=== PATIENT | male | born 1950 | race Caucasian/White ===

== ENCOUNTER 2016-06-20 11:05 | Inpatient (IN) | payer MEDICARE ==
[~2016-06-20] VITALS: Ht 172.7 cm; Wt 66.9 kg
[~2016-06-20 11:05] MED LIST: DOXY100C2 PO; HYDR-3241 PO; LISI-167 PO; TAMS0.4C2 PO
[2016-06-20] MEDS ORDERED: SODIUM CHLORIDE FLUSH 10ML SYR IVF ONE (14:00)
[2016-06-20 14:35] LABS: HEMOGLOBIN 12.3 g/dL (13.7-18.0)
[2016-06-20 14:46] LABS: ASPARTATE AMINO TRANSFERASE 11 U/L (15-37); BLOOD UREA NITROGEN 89 mg/dL (7-18)
[2016-06-20] MEDS ORDERED: MORPHINE SULFATE 4 MG/ML, 1ML ONE ×3 (14:54→20:44)
[2016-06-20] MEDS ORDERED: ONDANSETRON 2MG/ML, 2ML ONE (14:55)
[2016-06-20 14:56] LABS: IS PT STATUS REG ER OR PRE ER? YES
[2016-06-20] MEDS ORDERED: ONDANSETRON 2MG/ML, 2ML IVPush ONE (15:00)
[2016-06-20] MEDS: MORPHINE SULFATE 4 MG/ML, 1ML IVPush PRN ×4 (15:02→23:36)
[2016-06-20] MEDS ORDERED: SODIUM BICARBONATE 1 MEQ/ML, 50ML VIAL ONE (15:22)
[2016-06-20] MEDS ORDERED: DEXTROSE 50%, 50ML SYRINGE ONE ×2 (15:22→17:08)
[2016-06-20] MEDS ORDERED: INSULIN SINGLE DOSE, ER SQ-INSULIN ONE (15:23)
[2016-06-20] MEDS ORDERED: INSULIN REGULAR 100 UNITS/ML, 3ML VIAL IVPush ONE (15:30)
[2016-06-20] MEDS ORDERED: SODIUM BICARB 8.4%, 50ML SYRINGE IVPush ONE (15:30)
[2016-06-20] MEDS ORDERED: FUROSEMIDE 40 MG/4 ML IVPush ONE (15:30)
[2016-06-20] MEDS ORDERED: DEXTROSE 50%, 50ML SYRINGE IVPush ONE ×3 (15:30→18:30)
[2016-06-20] MEDS ORDERED: LIDOCAINE GEL 2%, 5ML ONE (15:55)
[2016-06-20] MEDS ORDERED: SODIUM CHLORIDE 0.9% 1,000 ML IV SCH (16:10)
[2016-06-20] MEDS ORDERED: ACETAMINOPHEN 325 MG TABLET PO PRN (16:30)
[2016-06-20] MEDS ORDERED: LORazepam 1MG TABLET PO PRN (16:30)
[2016-06-20] MEDS ORDERED: ONDANSETRON 2MG/ML, 2ML IVP PRN (16:30)
[2016-06-20] MEDS ORDERED: SODIUM POLYSTYRENE SULFONATE ORAL SUSP PO ONE (16:30)
[2016-06-20] MEDS ORDERED: ONDANSETRON ODT 4 MG PO PRN (16:30)
[2016-06-20] MEDS ORDERED: BISACODYL 10 MG SUPP PR PRN (16:30)
[2016-06-20] MEDS ORDERED: LABETALOL 5MG/ML, 20ML IVPush PRN (16:30)
[2016-06-20] MEDS ORDERED: PHARMACY MAY ADJ FOR RENAL FX MC PRN (17:00)
[2016-06-20] MEDS ORDERED: LIDOCAINE 1%, 20ML ONE (17:19)
[2016-06-20] MEDS ORDERED: FENTANYL PF 100 MCG/2ML ONE (17:50)
[2016-06-20] MEDS ORDERED: NICOTINE 14MG/24 HR PATCH.TD24 ONE ×2 (18:17→19:32)
[2016-06-20] MEDS ORDERED: VISIPAQUE 270 MG/ML, 50ML BOTTLE ONE (18:56)
[2016-06-20] MEDS: SODIUM BICARB 8.4%,50ML SYR. 75 MEQ in SODIUM CHLORIDE 0.45% 1,000 ML IV SCH (19:14)
[2016-06-20 19:30] LABS: BLOOD UREA NITROGEN 91 mg/dL (7-18)
[2016-06-20] MEDS ORDERED: HEPARIN 5,000 UNITS/ML, 1ML ONE (19:32)
[2016-06-20] MEDS: NICOTINE 14MG/24 HR PATCH.TD24 TD SCH (19:35)
[2016-06-20] MEDS: HEPARIN 5,000 UNITS/ML, 1ML SQ SCH (19:36)
[2016-06-20 19:56] LABS: DAU SCREEN DISCLAIMER
[2016-06-20 20:15] LABS: POTASSIUM,URINE RANDOM 12 mmol/L
[2016-06-20] MEDS ORDERED: SODIUM POLYSTYRENE SULFONATE ORAL SUSP ONE (20:16)
[2016-06-20 22:53] VITALS: BP 166/67
[2016-06-20 22:57] VITALS: BP 166/67
[2016-06-20] MEDS: HYDROcodone/APAP 10/325 MG TABLET PO PRN (23:37)
[2016-06-21 02:01] VITALS: BP 171/65
[2016-06-21] MEDS: SODIUM BICARB 8.4%,50ML SYR. 75 MEQ in SODIUM CHLORIDE 0.45% 1,000 ML IV SCH ×3 (03:47→20:07)
[2016-06-21] MEDS: HEPARIN 5,000 UNITS/ML, 1ML SQ SCH ×3 (03:49→20:00)
[2016-06-21 05:47] LABS: HEMOGLOBIN 10.7 g/dL (13.7-18.0)
[2016-06-21 05:56] LABS: BLOOD UREA NITROGEN 74 mg/dL (7-18)
[2016-06-21 05:59] LABS: ASPARTATE AMINO TRANSFERASE 9 U/L (15-37)
[2016-06-21] MEDS: THIAMINE 100MG TABLET PO SCH (07:54)
[2016-06-21] MEDS: FOLIC ACID 1 MG TABLET PO SCH (07:54)
[2016-06-21] MEDS: TAMSULOSIN 0.4 MG CAP.ER.24H PO SCH (07:54)
[2016-06-21 08:44] VITALS: BP 178/67
[2016-06-21] MEDS ORDERED: LABETALOL 5MG/ML, 20ML IVPush PRN (09:24)
[2016-06-21] MEDS ORDERED: DEXTROSE 4 GM TAB.CHEW PO PRN (09:30)
[2016-06-21] MEDS ORDERED: GLUCAGON 1 MG IM PRN (09:30)
[2016-06-21] MEDS ORDERED: DEXTROSE 50%, 50ML SYRINGE IVPush PRN (09:30)
[2016-06-21] MEDS: SODIUM CHLORIDE FLUSH 10ML SYR IVF SCH ×2 (10:42→20:12)
[2016-06-21] MEDS: HYDROcodone/APAP 10/325 MG TABLET PO PRN ×4 (11:01→20:08)
[2016-06-21 13:14] VITALS: BP 176/66
[2016-06-21] MEDS: NICOTINE 14MG/24 HR PATCH.TD24 TD SCH (15:54)
[2016-06-21] MEDS: METOPROLOL TARTRATE 25 MG TABLET PO SCH (18:09)
[2016-06-21 18:48] VITALS: BP 175/62
[2016-06-22 00:26] VITALS: BP 182/64
[2016-06-22 01:00] VITALS: BP 172/66
[2016-06-22] MEDS: HYDROcodone/APAP 10/325 MG TABLET PO PRN ×6 (01:11→23:01)
[2016-06-22] MEDS ORDERED: LABETALOL 20 MG/4 ML IVPush PRN (01:30)
[2016-06-22] MEDS: HEPARIN 5,000 UNITS/ML, 1ML SQ SCH ×3 (04:00→20:00)
[2016-06-22] MEDS: SODIUM BICARB 8.4%,50ML SYR. 75 MEQ in SODIUM CHLORIDE 0.45% 1,000 ML IV SCH ×3 (04:42→22:53)
[2016-06-22] MEDS: METOPROLOL TARTRATE 25 MG TABLET PO SCH ×2 (05:43→18:14)
[2016-06-22 05:59] LABS: BLOOD UREA NITROGEN 41 mg/dL (7-18)
[2016-06-22 07:28] VITALS: BP 177/63
[2016-06-22] MEDS: TAMSULOSIN 0.4 MG CAP.ER.24H PO SCH (10:11)
[2016-06-22] MEDS: FOLIC ACID 1 MG TABLET PO SCH (10:11)
[2016-06-22] MEDS: THIAMINE 100MG TABLET PO SCH (10:11)
[2016-06-22] MEDS: SODIUM CHLORIDE FLUSH 10ML SYR IVF SCH ×2 (10:13→20:16)
[2016-06-22 14:20] VITALS: BP 177/71
[2016-06-22] MEDS: NICOTINE 14MG/24 HR PATCH.TD24 TD SCH (18:13)
[2016-06-22 19:48] VITALS: BP 137/61
[2016-06-22 19:50] VITALS: BP 137/61
[2016-06-23 03:11] VITALS: BP 160/80
[2016-06-23] MEDS: HEPARIN 5,000 UNITS/ML, 1ML SQ SCH ×3 (04:00→19:46)
[2016-06-23 06:07] LABS: BLOOD UREA NITROGEN 24 mg/dL (7-18)
[2016-06-23] MEDS: METOPROLOL TARTRATE 25 MG TABLET PO SCH ×2 (06:36→17:24)
[2016-06-23] MEDS: HYDROcodone/APAP 10/325 MG TABLET PO PRN ×5 (06:36→23:56)
[2016-06-23 07:51] VITALS: BP 160/67
[2016-06-23] MEDS: SODIUM CHLORIDE FLUSH 10ML SYR IVF SCH ×2 (09:37→19:46)
[2016-06-23] MEDS: FOLIC ACID 1 MG TABLET PO SCH (09:37)
[2016-06-23] MEDS: SODIUM BICARB 8.4%,50ML SYR. 75 MEQ in SODIUM CHLORIDE 0.45% 1,000 ML IV SCH ×2 (09:37→19:45)
[2016-06-23] MEDS: TAMSULOSIN 0.4 MG CAP.ER.24H PO SCH (09:37)
[2016-06-23] MEDS: THIAMINE 100MG TABLET PO SCH (09:37)
[2016-06-23] MEDS ORDERED: POTASSIUM CHLORIDE 20 MEQ TAB.ER.PRT PO ONE (10:30)
[2016-06-23 13:35] VITALS: BP 175/62
[2016-06-23] MEDS: POLYETHYLENE GLYCOL 17 GM PACKET PO PRN (14:22)
[2016-06-23] MEDS: DOCUSATE 100 MG CAPSULE PO PRN (14:22)
[2016-06-23] MEDS: NICOTINE 14MG/24 HR PATCH.TD24 TD SCH (17:24)
[2016-06-23 19:42] VITALS: BP 170/74
[2016-06-24 01:02] VITALS: BP 170/81
[2016-06-24] MEDS: HEPARIN 5,000 UNITS/ML, 1ML SQ SCH ×3 (04:00→20:00)
[2016-06-24] MEDS: SODIUM BICARB 8.4%,50ML SYR. 75 MEQ in SODIUM CHLORIDE 0.45% 1,000 ML IV SCH (04:44)
[2016-06-24] MEDS: HYDROcodone/APAP 10/325 MG TABLET PO PRN ×4 (04:48→21:12)
[2016-06-24 05:47] LABS: HEMOGLOBIN 11.3 g/dL (13.7-18.0)
[2016-06-24 05:48] LABS: BLOOD UREA NITROGEN 16 mg/dL (7-18); TOTAL IRON BINDING CAPACITY 148 mcg/dL (250-450)
[2016-06-24 07:07] VITALS: BP 171/69
[2016-06-24] MEDS ORDERED: MAGNESIUM SULFATE PMX 2GM/50ML 50 ML IV ONE (08:00)
[2016-06-24] MEDS: POTASSIUM CHLORIDE 20 MEQ TAB.ER.PRT PO SCH (08:11)
[2016-06-24] MEDS: FOLIC ACID 1 MG TABLET PO SCH (08:20)
[2016-06-24] MEDS: METOPROLOL TARTRATE 25 MG TABLET PO SCH ×2 (08:20→17:28)
[2016-06-24] MEDS: THIAMINE 100MG TABLET PO SCH (08:20)
[2016-06-24] MEDS: SODIUM CHLORIDE FLUSH 10ML SYR IVF SCH ×2 (08:21→21:04)
[2016-06-24] MEDS: POLYETHYLENE GLYCOL 17 GM PACKET PO PRN (10:28)
[2016-06-24] MEDS: DOCUSATE 100 MG CAPSULE PO PRN (10:29)
[2016-06-24] MEDS: MAGNESIUM OXIDE 400 MG TABLET PO SCH ×2 (10:29→21:04)
[2016-06-24] MEDS: NEUTRA PHOS K 250 MG TABLET PO SCH ×3 (10:29→21:04)
[2016-06-24 12:34] VITALS: BP 155/65
[2016-06-24] MEDS: NICOTINE 14MG/24 HR PATCH.TD24 TD SCH (17:31)
[2016-06-24 20:45] VITALS: BP 157/60
[2016-06-24] MEDS: TAMSULOSIN 0.4 MG CAP.ER.24H PO SCH (21:04)
[2016-06-25 01:21] VITALS: BP 172/69
[2016-06-25] MEDS: HEPARIN 5,000 UNITS/ML, 1ML SQ SCH ×3 (02:47→20:00)
[2016-06-25] MEDS: HYDROcodone/APAP 10/325 MG TABLET PO PRN ×4 (02:47→20:51)
[2016-06-25 05:48] LABS: BLOOD UREA NITROGEN 14 mg/dL (7-18)
[2016-06-25] MEDS: METOPROLOL TARTRATE 25 MG TABLET PO SCH ×2 (06:30→17:13)
[2016-06-25 07:56] VITALS: BP 174/67
[2016-06-25] MEDS: MAGNESIUM OXIDE 400 MG TABLET PO SCH ×2 (08:19→20:50)
[2016-06-25] MEDS: SODIUM CHLORIDE FLUSH 10ML SYR IVF SCH ×2 (08:20→20:50)
[2016-06-25] MEDS: NEUTRA PHOS K 250 MG TABLET PO SCH ×3 (08:20→20:51)
[2016-06-25] MEDS: THIAMINE 100MG TABLET PO SCH (08:20)
[2016-06-25] MEDS: POTASSIUM CHLORIDE 20 MEQ TAB.ER.PRT PO SCH (08:20)
[2016-06-25] MEDS: FOLIC ACID 1 MG TABLET PO SCH (08:20)
[2016-06-25] MEDS: AMLODIPINE 5 MG TABLET PO SCH (09:00)
[2016-06-25 13:14] VITALS: BP 173/63
[2016-06-25] MEDS: NICOTINE 14MG/24 HR PATCH.TD24 TD SCH (16:30)
[2016-06-25 19:09] VITALS: BP 163/56
[2016-06-25] MEDS: TAMSULOSIN 0.4 MG CAP.ER.24H PO SCH (20:50)
[2016-06-26 02:49] VITALS: BP 164/74
[2016-06-26] MEDS: HYDROcodone/APAP 10/325 MG TABLET PO PRN ×2 (02:52→08:44)
[2016-06-26] MEDS: HEPARIN 5,000 UNITS/ML, 1ML SQ SCH (02:54)
[2016-06-26] MEDS: METOPROLOL TARTRATE 25 MG TABLET PO SCH (06:07)
[2016-06-26 06:10] VITALS: BP 159/64
[2016-06-26 06:45] LABS: BLOOD UREA NITROGEN 17 mg/dL (7-18)
[2016-06-26 06:52] VITALS: BP 163/72
[2016-06-26] MEDS: SODIUM CHLORIDE FLUSH 10ML SYR IVF SCH (08:40)
[2016-06-26] MEDS: MAGNESIUM OXIDE 400 MG TABLET PO SCH (08:40)
[2016-06-26] MEDS: NEUTRA PHOS K 250 MG TABLET PO SCH (08:40)
[2016-06-26] MEDS: THIAMINE 100MG TABLET PO SCH (08:40)
[2016-06-26] MEDS: FOLIC ACID 1 MG TABLET PO SCH (08:40)
[2016-06-26] MEDS: AMLODIPINE 5 MG TABLET PO SCH (08:40)
[2016-06-26] MEDS: POTASSIUM CHLORIDE 20 MEQ TAB.ER.PRT PO SCH (08:40)
[2016-06-26] MEDS ORDERED: AMLO5TAB2 PO (10:03)
[2016-06-26] MEDS ORDERED: MAGN400T26 PO (10:03)
[2016-06-26] MEDS ORDERED: METO25TA35 PO (10:03)
[2016-06-26] MEDS ORDERED: TAMS-11 PO (10:03)
== END 2016-06-26 12:40 | disposition home or self-care (01) | DRG 682 ==
LOC: ED 15:43 → EDIP 16:10 → 4EST 22:41 → DCLOUNGE 06-26 12:14
PROVIDERS: ADMIT Family Medicine; ATTEND Family Medicine
PROC: 0T9B70Z Drainage of Bladder with Drainage Device, Via Natural or Artificial Opening (ICD-10-PCS; principal; 2016-06-20)
DX: N17.9 Acute kidney failure, unspecified (principal); G93.40 Encephalopathy, unspecified; E87.2 Acidosis; E87.1 Hypo-osmolality and hyponatremia; E44.0 Moderate protein-calorie malnutrition; N13.8 Other obstructive and reflux uropathy; F11.20 Opioid dependence, uncomplicated; N13.30 Unspecified hydronephrosis; D64.9 Anemia, unspecified; E87.5 Hyperkalemia; E87.70 Fluid overload, unspecified; G89.29 Other chronic pain; I11.9 Hypertensive heart disease without heart failure; N42.9 Disorder of prostate, unspecified; F17.210 Nicotine dependence, cigarettes, uncomplicated; M16.0 Bilateral primary osteoarthritis of hip; E87.6 Hypokalemia; N40.1 Benign prostatic hyperplasia with lower urinary tract symptoms; N32.0 Bladder-neck obstruction; E83.39 Other disorders of phosphorus metabolism; E83.42 Hypomagnesemia; M19.90 Unspecified osteoarthritis, unspecified site; Z96.641 Presence of right artificial hip joint; E78.5 Hyperlipidemia, unspecified; Z95.0 Presence of cardiac pacemaker; Z80.8 Family history of malignant neoplasm of other organs or systems; Z68.22 Body mass index [BMI] 22.0-22.9, adult
CPT/HCPCS: 36415; 71020; 75989; 76770; 76942; 80048; 80053; 80069; 80307; 81001; 82436; 82550; 82570; 82607; 82728; 82746; 82962; 83036; 83540; 83550; 83735; 83880; 84100; 84133; 84300; 84443; 84466; 84484; 85025; 87086; 93005; 93970; 96361; 96365; 96366; 96375; 96376; C1725; J1644; J2405; J3010; J3490; Q9966; C1769; J3475; J7030